=== PATIENT | male | born 1955 | race Caucasian/White ===

== ENCOUNTER 2017-01-16 23:19 | Inpatient (IN) | payer OTHER ==
[~2017-01-16] VITALS: Ht 170.2 cm; Wt 99.8 kg
[~2017-01-16 23:19] MED LIST: GLU500 PO; LEXAPRO10 MG PO; LOP600 PO; METFORMIN HCL500 MG PO; METOPROLOL TART25 M1 PO; MEV20 PO; MOTRIN800 MG PO; NIT0.4 SL; NITROSTAT0.4 MG SL; PRI20 PO; ZES10 PO; [UNRECOGNIZED DRUG - OTHER] PO
[2017-01-17 00:54] LABS: BASOPHIL % 0.4 % (0-2); PLATELET COUNT 284 x10^3mcL (130-400); RED CELL DISTRIBUTION WIDTH 13.2 % (11.5-14.5)
[2017-01-17 01:07] LABS: CARBON DIOXIDE 29.1 mmol/L (21-32); CHLORIDE SERUM 103 mmol/L (98-107); CREATININE SERUM 1.1 mg/dL (0.7-1.3); GFR1 > 60 mL/min; GLUCOSE SERUM 115 mg/dL (74-106); POTASSIUM SERUM 3.8 mmol/L (3.5-5.1); SODIUM SERUM 137 mmol/L (136-145)
[2017-01-17 01:12] LABS: ALBUMIN 3.9 g/dL (3.4-5.0); ALKALINE PHOSPHATASE 73 U/L (46-116); ALT/SGPT 42 U/L (16-63); AST/SGOT 27 U/L (15-37); BILIRUBIN TOTAL 0.4 mg/dL (0.20-1.00); TOTAL PROTEIN, SERUM 7.6 g/dL (6.4-8.2)
[2017-01-17 01:19] LABS: CK-MB 1.8 ng/mL (0-3.6)
[2017-01-17 03:59] LABS: FREE T4 0.95 ng/dL (0.76-1.46); FREE THYROXINE INDEX 2.2 ug/dL (1.4-4.5); T4(THYROXINE) 6.9 ug/dL (4.7-13.3)
[2017-01-17 04:00] LABS: CHOLESTEROL/HDL RATIO 3.4; MAGNESIUM 2.2 mg/dL (1.8-2.4); PHOSPHOROUS 3.3 mg/dL (2.5-4.9)
[2017-01-17 04:20] LABS: T3 TOTAL 1.08 ng/mL
[2017-01-17 10:35] VITALS: BP 132/76
[2017-01-17 12:24] VITALS: BP 134/71
[2017-01-17 15:38] LABS: microscopic required? YES; urine erythrocyte TRACE (NEGATIVE)
[2017-01-17 15:47] LABS: AMPHETAMINE QUAL UR NONE DETECTED (NEG <=1000)
[2017-01-17 18:20] VITALS: BP 126/51
[2017-01-17 22:04] VITALS: BP 123/2
[2017-01-18 06:20] VITALS: BP 101/55
[2017-01-18 09:30] VITALS: BP 110/59
[2017-01-18] MEDS ORDERED: THERA TABS1 TAB PO (13:20)
[2017-01-18] MEDS ORDERED: LIPITOR80 MG PO (13:21)
[2017-01-18] MEDS ORDERED: MOT800 PO (13:27)
[2017-01-18 13:56] VITALS: BP 110/59
== END 2017-01-18 14:50 | disposition home or self-care (01) | DRG 203 ==
LOC: ED 23:19 → MU 01-17 02:46 → DU 01-17 02:46 → MU 01-18 08:46
PROVIDERS: Emergency Medicine; ADMIT Family Medicine
DX: M94.0 Chondrocostal junction syndrome [Tietze] (principal); D68.69 Other thrombophilia; I42.9 Cardiomyopathy, unspecified; K21.9 Gastro-esophageal reflux disease without esophagitis; F32.9 Major depressive disorder, single episode, unspecified; E11.65 Type 2 diabetes mellitus with hyperglycemia; R20.0 Anesthesia of skin; I25.2 Old myocardial infarction; E78.1 Pure hyperglyceridemia; I25.10 Atherosclerotic heart disease of native coronary artery without angina pectoris; Z79.82 Long term (current) use of aspirin; Z87.891 Personal history of nicotine dependence
CPT/HCPCS: 82962; 83880; 84439; J1885; J2270; J7030; Q0092

== ENCOUNTER 2017-03-12 18:03 | Emergency (ER) | payer OTHER ==
[~2017-03-12] VITALS: Ht 170.2 cm; Wt 79.8 kg
[~2017-03-12 18:03] MED LIST changes: +LIPITOR80 MG PO; +MOT800 PO; +THERA TABS1 TAB PO
[2017-03-12 20:57] LABS: BASOPHIL % 0.3 % (0-2); PLATELET COUNT 281 x10^3mcL (130-400); RED CELL DISTRIBUTION WIDTH 13.3 % (11.5-14.5)
[2017-03-12 20:58] LABS: CALCIUM 8.8 mg/dL (8.5-10.1); CARBON DIOXIDE 29.1 mmol/L (21-32); CHLORIDE SERUM 103 mmol/L (98-107); CREATININE SERUM 1.2 mg/dL (0.7-1.3); GFR1 > 60 mL/min; GLUCOSE SERUM 98 mg/dL (74-106); POTASSIUM SERUM 4.4 mmol/L (3.5-5.1); SODIUM SERUM 141 mmol/L (136-145)
[2017-03-12 21:03] LABS: ALBUMIN 3.9 g/dL (3.4-5.0); ALKALINE PHOSPHATASE 62 U/L (46-116); ALT/SGPT 36 U/L (16-63); AST/SGOT 19 U/L (15-37); BILIRUBIN TOTAL 0.42 mg/dL (0.20-1.00); TOTAL PROTEIN, SERUM 7.3 g/dL (6.4-8.2)
[2017-03-12 22:41] VITALS: BP 126/78
== END 2017-03-12 22:41 | disposition home or self-care (01) ==
LOC: ED 18:03
PROVIDERS: Emergency Medicine
DX: R07.89 Other chest pain (principal); F32.1 Major depressive disorder, single episode, moderate; E78.00 Pure hypercholesterolemia, unspecified; Z88.0 Allergy status to penicillin; Z79.84 Long term (current) use of oral hypoglycemic drugs; Z79.899 Other long term (current) drug therapy
CPT/HCPCS: 36415; 83880; Q0092

== ENCOUNTER 2017-06-06 21:34 | Inpatient (IN) | payer OTHER ==
[~2017-06-06] VITALS: Ht 170.2 cm; Wt 101.6 kg
--- NOTE | 2017-06-06 21:41 | NUR ---
EKG COMPLETED AND REVIEWED BY
--- NOTE | 2017-06-06 21:41 | NUR ---
PT BACK TO ED LOBBY. WAITING ROOM AVAILIBILITY. PT INSTRUCTED TO RETURN TO TRIAGE FOR ANY CHANGE IN CONDITION.
--- NOTE | 2017-06-06 22:00 | NUR ---
PT TO ED VIA TRIAGE W/ C/O CP X 3 DAYS WORSENING TODAY PT HX OF TN X 3 YEARS AGO PT TO BEE ON MONITOR MD AWARE AWAIT ORDERS AND DISPO
--- NOTE | 2017-06-06 23:47 | NUR ---
PT MEDICATED PER MD ORDER CONT TO MONITOR
[2017-06-06 23:48] LABS: BASOPHIL % 0.6 % (0-2); PLATELET COUNT 261 x10^3mcL (130-400); RED CELL DISTRIBUTION WIDTH 13.1 % (11.5-14.5)
[2017-06-07] LABS: CALCIUM 8.4 mg/dL (8.5-10.1); CARBON DIOXIDE 29.6 mmol/L (21-32); CHLORIDE SERUM 107 mmol/L (98-107); CREATININE SERUM 1.2 mg/dL (0.7-1.3); GFR1 > 60 mL/min; GLUCOSE SERUM 104 mg/dL (74-106); POTASSIUM SERUM 4.1 mmol/L (3.5-5.1); SODIUM SERUM 141 mmol/L (136-145)
[2017-06-07 00:12] LABS: ALBUMIN 3.5 g/dL (3.4-5.0); ALKALINE PHOSPHATASE 66 U/L (46-116); ALT/SGPT 27 U/L (16-63); AST/SGOT 17 U/L (15-37); BILIRUBIN TOTAL 0.3 mg/dL (0.20-1.00); LIPASE 128 IU/L (73-393); TOTAL PROTEIN, SERUM 7.2 g/dL (6.4-8.2)
--- NOTE | 2017-06-07 00:27 | NUR ---
PT STATES NO PAIN NITRO AND ASA HAS RELIVED THE CHEST PAIN VSS MD AWARE
--- NOTE | 2017-06-07 00:29 | NUR ---
AGENCY DOCUMENTATION DONE BY Staff Name/Title - :DIPIKA ARITA [employer] User ID - : Agency Name - :[facility] Time Documented - From - : To - :
[2017-06-07 01:50] LABS: MAGNESIUM 2.2 mg/dL (1.8-2.4); T3 TOTAL 1.35 ng/mL
[2017-06-07 01:55] LABS: FREE T4 0.88 ng/dL (0.76-1.46); FREE THYROXINE INDEX 2.4 ug/dL (1.4-4.5); T4(THYROXINE) 7.4 ug/dL (4.7-13.3)
--- NOTE | 2017-06-07 02:10 | NUR ---
REPORT GIVEN TO FLOOR HAO ORNELAS ALL QUESTIONS ASKED AMD ANSWERED PT TRANSFERED VIA GURNEY IN STABLE CONDITION W/ ALL PERSONAL BELONGINGS
[2017-06-07 02:26] VITALS: BP 140/70
[2017-06-07 02:31] LABS: CHOLESTEROL/HDL RATIO 2.8
--- NOTE | 2017-06-07 02:41 | NUR ---
ADMITTED A 62 YEARS OLD MALE AWAKE, ALERT AND ORIENTED CAME IN VIA GURNEY ACCOMPANIED BY ER STAFF WITH C/O CHESTPAIN AND SOB ON EXERTION WITH OCASSIONAL COUGH X 3 DAYS TIG WELDER. MEDICATED IN ER FOR CHESTPAIN DENIES PAIN THIS TIME. KEPT IN COMFORT AND ORIENTED TO ROOM AND DEVICES. TELE# 6 SB ON MONITOR. IV TO LH INTACT AND PATENT, WILL CONTINUE TO MONITOR. CALL LIGHT WITHIN REACH.
--- NOTE | 2017-06-07 03:01 | NUR ---
WITH ADMISSION ORDERS AND CARRIED OUT. STARTED WITH NS INFUSING WELL. WILL CONTINUE TO MONITOR. DENIES CHESTPAIN AT THIS TIME.
--- NOTE | 2017-06-07 05:24 | NUR ---
CHECKED AT INTERVALS FOR NEEDS AND COMFORT. DENIES CHEST DISCOMFORT THE ENTIRE SHIFT.
[2017-06-07 05:29] VITALS: BP 111/58
--- NOTE | 2017-06-07 07:25 | NUR ---
RECEIVED PT. IN BED A/A/O X4. NO SOB, NO N/V NOTED. DENIES ANY PAIN AT THIS TIME. NS RUNNING AT 100 CC/HR. VIA IV H/L AT L HAND. SCD TO BLE MAINTAINED. BED IN LOW POS., CALL LIGHT WITHIN REACH. SIDE RAILS UP X3.
--- NOTE | 2017-06-07 08:45 | NUR ---
DR. THAO, THE RESIDENTS, CHARGE NURSE, AND ATTENDING NURSE AT BEDSIDE. CAREPLAN DISCUSSED WITH PT. ALL QUESTIONS ANSWERED.
[2017-06-07 09:45] VITALS: BP 130/71
[2017-06-07 13:25] VITALS: BP 117/55
[2017-06-07] MEDS ORDERED: METOPROLOL TART25 M1 PO (14:37)
[2017-06-07] MEDS ORDERED: CYMBALTA60 M1 PO (14:38)
[2017-06-07] MEDS ORDERED: ACCU-CHEK1 EACH MC (16:58)
[2017-06-07] MEDS ORDERED: ACCU-CHEK COMB1 EACH MC (16:58)
[2017-06-07] MEDS ORDERED: GLU500 PO (16:58)
[2017-06-07] MEDS ORDERED: TEST STRIPS1 EACH MC (16:58)
--- NOTE | 2017-06-07 17:10 | NUR ---
D/C HOME INSTRUCTIONS GIVEN TO PT. WITH VERBALIZATION OF UNDERSTANDING. IV H/L TO L HAND REMOVED. TELE. MONITOR #6 REMOVED AND RETURNED TO TELE. MONITOR STATION.
--- NOTE | 2017-06-07 18:00 | NUR ---
PT. IS BEING DISCHARGED IN STABLE CONDITION (DECLINED TO BE WHEELED OUT IN A WHEELCHAIR). ALL BELONGINGS SENT HOME WITH PT. UPON DISCHARGE.
== END 2017-06-07 18:00 | disposition home or self-care (01) | DRG 756 ==
LOC: ED 21:34 → DU 06-07 01:00
PROVIDERS: Emergency Medicine; ADMIT Family Medicine
DX: F41.9 Anxiety disorder, unspecified (principal); D68.69 Other thrombophilia; K21.9 Gastro-esophageal reflux disease without esophagitis; E11.65 Type 2 diabetes mellitus with hyperglycemia; D64.9 Anemia, unspecified; E78.5 Hyperlipidemia, unspecified; I25.2 Old myocardial infarction; E78.1 Pure hyperglyceridemia; I34.0 Nonrheumatic mitral (valve) insufficiency; E66.3 Overweight; Z53.29 Procedure and treatment not carried out because of patient's decision for other reasons; F32.9 Major depressive disorder, single episode, unspecified; E78.00 Pure hypercholesterolemia, unspecified; I25.10 Atherosclerotic heart disease of native coronary artery without angina pectoris; Z68.35 Body mass index [BMI] 35.0-35.9, adult; Z79.1 Long term (current) use of non-steroidal anti-inflammatories (NSAID); Z88.0 Allergy status to penicillin; Z79.84 Long term (current) use of oral hypoglycemic drugs; Z79.899 Other long term (current) drug therapy; Z90.49 Acquired absence of other specified parts of digestive tract; Z83.3 Family history of diabetes mellitus; Z82.49 Family history of ischemic heart disease and other diseases of the circulatory system; Z98.49 Cataract extraction status, unspecified eye
CPT/HCPCS: 82962; 84439; J7030; Q0092

== ENCOUNTER 2017-09-19 11:33 | Inpatient (IN) | payer OTHER ==
[~2017-09-19] VITALS: Ht 170.2 cm; Wt 95.7 kg
[~2017-09-19 11:33] MED LIST changes: +ACCU-CHEK COMB1 EACH MC; +ACCU-CHEK1 EACH MC; +CYMBALTA60 M1 PO; +TEST STRIPS1 EACH MC
[2017-09-19 11:35] VITALS: Ht 170.2 cm; Wt 95.7 kg
[2017-09-19 13:08] LABS: BASOPHIL % 1.5 % (0-2); PLATELET COUNT 267 x10^3mcL (130-400); RED CELL DISTRIBUTION WIDTH 13.3 % (11.5-14.5)
[2017-09-19 13:12] LABS: CALCIUM 8.7 mg/dL (8.5-10.1); CARBON DIOXIDE 27.4 mmol/L (21-32); CHLORIDE SERUM 105 mmol/L (98-107); CREATININE SERUM 1.2 mg/dL (0.7-1.3); GFR1 > 60 mL/min; GLUCOSE SERUM 124 mg/dL (74-106); POTASSIUM SERUM 3.9 mmol/L (3.5-5.1); SODIUM SERUM 141 mmol/L (136-145)
[2017-09-19 13:16] LABS: ALBUMIN 3.6 g/dL (3.4-5.0); ALKALINE PHOSPHATASE 59 U/L (46-116); ALT/SGPT 25 U/L (16-63); AST/SGOT 19 U/L (15-37); BILIRUBIN TOTAL 0.71 mg/dL (0.20-1.00)
[2017-09-19 14:53] VITALS: BP 128/61
[2017-09-19 15:34] LABS: MAGNESIUM 2.1 mg/dL (1.8-2.4); PHOSPHOROUS 3.1 mg/dL (2.5-4.9); T3 TOTAL 0.92 ng/mL
[2017-09-19 15:36] LABS: CHOLESTEROL/HDL RATIO 2.6
[2017-09-19 15:44] LABS: FREE T4 0.91 ng/dL (0.76-1.46); FREE THYROXINE INDEX 2.3 ug/dL (1.4-4.5); T4(THYROXINE) 6.3 ug/dL (4.7-13.3)
[2017-09-19 20:14] VITALS: BP 115/63
[2017-09-19 22:20] VITALS: BP 108/63
[2017-09-20 05:09] LABS: microscopic required? YES; urine erythrocyte 1+ (NEGATIVE)
[2017-09-20 05:39] LABS: AMPHETAMINE QUAL UR NONE DETECTED (NEG <=1000)
[2017-09-20 06:10] LABS: BASOPHIL % 0.3 % (0-2); PLATELET COUNT 240 x10^3mcL (130-400); RED CELL DISTRIBUTION WIDTH 13.3 % (11.5-14.5)
[2017-09-20 06:33] VITALS: BP 109/61
[2017-09-20 06:40] LABS: CALCIUM 8.1 mg/dL (8.5-10.1); CARBON DIOXIDE 23.7 mmol/L (21-32); CHLORIDE SERUM 105 mmol/L (98-107); GFR1 > 60 mL/min; GLUCOSE SERUM 87 mg/dL (74-106); POTASSIUM SERUM 4.4 mmol/L (3.5-5.1); SODIUM SERUM 139 mmol/L (136-145)
[2017-09-20 10:14] VITALS: BP 109/61
[2017-09-20 10:49] VITALS: BP 111/57
[2017-09-20 17:50] VITALS: BP 105/55
[2017-09-20 19:50] VITALS: BP 102/56
[2017-09-21 05:42] VITALS: BP 105/63
[2017-09-21 08:17] LABS: BASOPHIL % 0.2 % (0-2); PLATELET COUNT 247 x10^3mcL (130-400); RED CELL DISTRIBUTION WIDTH 13.4 % (11.5-14.5)
[2017-09-21 10:02] VITALS: BP 116/61
[2017-09-21 11:10] LABS: CALCIUM 8.6 mg/dL (8.5-10.1); CHLORIDE SERUM 107 mmol/L (98-107); CREATININE SERUM 1.1 mg/dL (0.7-1.3); GFR1 > 60 mL/min; GLUCOSE SERUM 98 mg/dL (74-106); SODIUM SERUM 142 mmol/L (136-145)
[2017-09-21 13:58] VITALS: BP 115/69
[2017-09-21 15:51] VITALS: BP 115/69
== END 2017-09-21 17:10 | disposition home or self-care (01) | DRG 243 ==
LOC: ED 11:33 → DU 14:13
PROVIDERS: Emergency Medicine Emergency Medical Services; Family Medicine
DX: K21.9 Gastro-esophageal reflux disease without esophagitis (principal); I42.2 Other hypertrophic cardiomyopathy; I10 Essential (primary) hypertension; F41.1 Generalized anxiety disorder; E11.9 Type 2 diabetes mellitus without complications; I25.2 Old myocardial infarction; F32.9 Major depressive disorder, single episode, unspecified; E78.5 Hyperlipidemia, unspecified; Z90.49 Acquired absence of other specified parts of digestive tract; Z98.49 Cataract extraction status, unspecified eye; Z88.0 Allergy status to penicillin; Z83.3 Family history of diabetes mellitus; Z82.49 Family history of ischemic heart disease and other diseases of the circulatory system; M94.0 Chondrocostal junction syndrome [Tietze]; E83.51 Hypocalcemia
CPT/HCPCS: 83880; 84439; A9500; J2785; J7030; Q0092

== ENCOUNTER 2017-11-20 01:47 | Inpatient (IN) | payer OTHER ==
[~2017-11-20] VITALS: Ht 170.2 cm; Wt 95.2 kg
[2017-11-20 02:54] LABS: CALCIUM 8.5 mg/dL (8.5-10.1); CARBON DIOXIDE 29.6 mmol/L (21-32); CHLORIDE SERUM 104 mmol/L (98-107); CREATININE SERUM 1.2 mg/dL (0.7-1.3); GFR1 > 60 mL/min; GLUCOSE SERUM 121 mg/dL (74-106); POTASSIUM SERUM 4.4 mmol/L (3.5-5.1); SODIUM SERUM 139 mmol/L (136-145)
[2017-11-20 02:58] LABS: ALKALINE PHOSPHATASE 55 U/L (46-116); ALT/SGPT 25 U/L (16-63); AST/SGOT 24 U/L (15-37); BILIRUBIN TOTAL 0.26 mg/dL (0.20-1.00); TOTAL PROTEIN, SERUM 6.4 g/dL (6.4-8.2)
[2017-11-20 03:01] LABS: ALBUMIN 3.2 g/dL (3.4-5.0)
[2017-11-20 03:46] LABS: BASOPHIL % 0.4 % (0-2); PLATELET COUNT 265 x10^3mcL (130-400); RED CELL DISTRIBUTION WIDTH 13.6 % (11.5-14.5)
[2017-11-20 04:16] LABS: T3 TOTAL 0.99 ng/mL
[2017-11-20] MEDS ORDERED: NOR5 PO (04:22)
[2017-11-20 04:50] LABS: UA SPECIFIC GRAVITY 1.015 (1.005-1.035); microscopic required? YES; urine erythrocyte 1+ (NEGATIVE)
[2017-11-20 05:10] LABS: AMPHETAMINE QUAL UR NONE DETECTED (NEG <=1000)
[2017-11-20 05:14] VITALS: BP 127/73
[2017-11-20 05:15] LABS: CHOLESTEROL/HDL RATIO 2.4; MAGNESIUM 2.3 mg/dL (1.8-2.4); PHOSPHOROUS 3.1 mg/dL (2.5-4.9)
[2017-11-20 05:27] LABS: FREE T4 0.89 ng/dL (0.76-1.46); FREE THYROXINE INDEX 2.3 ug/dL (1.4-4.5); T4(THYROXINE) 6.5 ug/dL (4.7-13.3)
[2017-11-20 05:53] VITALS: BP 108/63
[2017-11-20 09:53] VITALS: BP 101/56
[2017-11-20 13:50] VITALS: BP 131/75
[2017-11-20 17:23] VITALS: BP 147/54
[2017-11-20 22:19] VITALS: BP 131/61
[2017-11-21 05:08] VITALS: BP 118/66
[2017-11-21 06:53] LABS: CALCIUM 8.4 mg/dL (8.5-10.1); CARBON DIOXIDE 29.7 mmol/L (21-32); CHLORIDE SERUM 106 mmol/L (98-107); CREATININE SERUM 1.1 mg/dL (0.7-1.3); GFR1 > 60 mL/min; GLUCOSE SERUM 92 mg/dL (74-106); MAGNESIUM 2.1 mg/dL (1.8-2.4); PHOSPHOROUS 3.5 mg/dL (2.5-4.9); POTASSIUM SERUM 4.3 mmol/L (3.5-5.1); SODIUM SERUM 137 mmol/L (136-145)
[2017-11-21 06:58] LABS: BASOPHIL % 0.4 % (0-2); PLATELET COUNT 268 x10^3mcL (130-400); RED CELL DISTRIBUTION WIDTH 12.9 % (11.5-14.5)
[2017-11-21 08:14] VITALS: BP 108/67
[2017-11-21 08:34] VITALS: BP 115/60
[2017-11-21] MEDS ORDERED: PEPCID20 MG PO (11:19)
[2017-11-21 12:26] VITALS: BP 115/60
[2017-11-21 13:09] VITALS: BP 118/65
== END 2017-11-21 13:25 | disposition home or self-care (01) | DRG 198 ==
LOC: ED 01:47 → DU 03:19
PROVIDERS: Emergency Medicine; Student in an Organized Health Care Education/Training Program
DX: R07.89 Other chest pain (principal); I25.2 Old myocardial infarction; E11.65 Type 2 diabetes mellitus with hyperglycemia; E44.1 Mild protein-calorie malnutrition; F32.9 Major depressive disorder, single episode, unspecified; K21.9 Gastro-esophageal reflux disease without esophagitis; E78.5 Hyperlipidemia, unspecified; F41.1 Generalized anxiety disorder; R31.9 Hematuria, unspecified; D64.9 Anemia, unspecified; N20.0 Calculus of kidney; F14.90 Cocaine use, unspecified, uncomplicated; E02 Subclinical iodine-deficiency hypothyroidism; N52.9 Male erectile dysfunction, unspecified; Z90.49 Acquired absence of other specified parts of digestive tract; Z98.49 Cataract extraction status, unspecified eye; Z88.0 Allergy status to penicillin; Z79.4 Long term (current) use of insulin; Z83.3 Family history of diabetes mellitus; Z82.49 Family history of ischemic heart disease and other diseases of the circulatory system; Z68.32 Body mass index [BMI] 32.0-32.9, adult
CPT/HCPCS: 82962; 83880; 84439; 85378; J7030; Q0092

== ENCOUNTER 2019-02-23 13:42 | Inpatient (IN) | payer OTHER ==
[~2019-02-23] VITALS: Ht 175.3 cm; Wt 84.4 kg
[~2019-02-23 13:42] MED LIST changes: +NOR5 PO; +PEPCID20 MG PO
[2019-02-23 14:04] VITALS: Ht 175.3 cm; Wt 84.4 kg
--- NOTE | 2019-02-23 14:10 | NUR ---
HAND-OFF REPORT TO HAO LIMA
--- NOTE | 2019-02-23 14:20 | NUR ---
PT WAS BIBA TO ED FOR EVAL OF CHEST PAIN. PT STS "I WAS AT [facility]RGENT [facility]ARE AND THEY SAID THE HEART TEST WAS NOT NORMAL." PT HANDED ME A PREVIOUS DC PAPERWORK FROM [facility] WITH THE WORD 'ISCHEMIA' WRITTEN ON IT AND STATED "THAT'S WHAT THE DOCTOR TOLD ME I HAD." PT REPORTS 6/10 PAIN AT THIS TIME. IN R SIDE LYING POS. DOES NOT APPEAR TO BE IN DISCOMFORT. USING CELLPHONE AT THIS TIME TO CALL DAUGHTER
[2019-02-23 14:27] LABS: BASOPHIL % 0.6 % (0-2); PLATELET COUNT 357 x10^3mcL (130-400); RED CELL DISTRIBUTION WIDTH 13.4 % (11.5-14.5)
[2019-02-23 14:44] LABS: CALCIUM 9.3 mg/dL (8.5-10.1); CARBON DIOXIDE 28.8 mmol/L (21-32); CREATININE SERUM 1.3 mg/dL (0.7-1.3); POTASSIUM SERUM 4.1 mmol/L (3.5-5.1)
[2019-02-23 14:48] LABS: ALBUMIN 3.9 g/dL (3.4-5.0); BILIRUBIN TOTAL 0.4 mg/dL (0.20-1.00); TOTAL PROTEIN, SERUM 7.8 g/dL (6.4-8.2)
--- NOTE | 2019-02-23 14:55 | NUR ---
PT STS "THEY HAVE A HARD TIME FINDING MY VEIN." TWO ATTEMPTS UNSUCCESFFUL
--- NOTE | 2019-02-23 16:12 | NUR ---
PT REQUESTED PAIN MED FOR CHEST PAIN AND MEDICATED PER DR FISHMAN ORDER. WILL CONT TO MONITOR
--- NOTE | 2019-02-23 16:59 | NUR ---
REPORT GIVEN TO COTY BUI
[2019-02-23] MEDS ORDERED: NAPROSYN500 MG PO (17:02)
[2019-02-23] MEDS ORDERED: ALTOPREV40 M2 PO (17:03)
[2019-02-23] MEDS ORDERED: PEPCID20 MG PO (17:03)
[2019-02-23] MEDS ORDERED: CIPROFLOXACIN500 MG PO (17:03)
[2019-02-23] MEDS ORDERED: NITROSTAT0.4 MG SL (17:04)
[2019-02-23] MEDS ORDERED: FLAGYL500 MG PO (17:04)
[2019-02-23 17:23] LABS: T3 TOTAL 1.07 ng/mL
[2019-02-23 17:24] VITALS: BP 148/87
--- NOTE | 2019-02-23 17:26 | NUR ---
RECEIVED PT FROM ED VIA ANA CRISTINA. ORIENTED PT TO ROOM AND SURROUNDINGS. IV NOTED TO RFA PATENT AND INTACT. TELE 7 PLACED ON PT READING NSR. INSTRUCTED PT ON THE USE OF CALL LIGHT FOR ASSISTANCE. ENDORSED PT TO PRIMARY NURSE BRYN
[2019-02-23 17:27] LABS: FREE T4 0.97 ng/dL (0.76-1.46); FREE THYROXINE INDEX 2.2 ug/dL (1.4-4.5); T4(THYROXINE) 6.9 ug/dL (4.7-13.3)
[2019-02-23] MEDS ORDERED: GOOD SENSE OMEP20 MG PO (17:30)
[2019-02-23] MEDS ORDERED: CARVEDILOL3.125 M1 PO (17:31)
[2019-02-23 17:32] LABS: CHOLESTEROL/HDL RATIO 3.3
[2019-02-23] MEDS ORDERED: VITAMIN B121000 MCG PO (17:32)
--- NOTE | 2019-02-23 17:46 | NUR ---
I AM FEELING BETTER... CHEST PAIN IS ABOUT 5-6 NOW. INSTRUCTED TO CALL RN FOR ANY NEED.
--- NOTE | 2019-02-23 17:59 | NUR ---
MD ANGELA MADE AWARE OF 6/10 CHEST DISCOMFORT.
--- NOTE | 2019-02-23 19:27 | NUR ---
HANDOFF REPORT GIVEN TO HAO GREGORY.
[2019-02-23 19:42] LABS: UA SPECIFIC GRAVITY 1.025 (1.005-1.035); microscopic required? YES; urine erythrocyte 2+ (NEGATIVE)
[2019-02-23 19:50] LABS: AMPHETAMINE QUAL UR NONE DETECTED (See below)
--- NOTE | 2019-02-23 20:26 | NUR ---
CJ COMPLAINED OF RIGHT SIDED STEADY CHEST PAIN, 01/22. NORCO 7.5/325 MG PO GIVEN ORDERED. WILL CONTINUE TO MONITOR.
[2019-02-23 20:30] VITALS: BP 136/76
[2019-02-23 20:37] VITALS: BP 136/76
--- NOTE | 2019-02-23 22:05 | NUR ---
PATIENT RECEIVED AWAKE, ALERT, ORIENTED X4 SITTING ON THE SIDE OF THE BED. RESPIRATION EVEN AND UNLABORED, ON ROOM AIR. SALINE LOCK TO RIGHT FOREARM PATENT AND INTACT. COMPLAINED OF STEADY CHEST PAIN, 6/10 SHARP IN NATURE. NO GI COMPLAINTS NOTED. VOIDING FREELY WITHOUT DIFFICULTY. GENERALIZED WEAKNESS NOTED. SKIN DRY AND INTACT. ON TELE #7. WILL CONTINUE TO MONITOR.
--- NOTE | 2019-02-24 00:50 | NUR ---
PATIENT COMPLAINED OF DIFFICULTY BREATHING, LATEST VITAL SIGNS FOLLOWS BP 13/75, HR 64, RR 20, O2 SAT 99% PROVIDED NASAL CANNULA. HE ALSO COMPLAINED OF NAUSEA ZOFRAN 4 MG IVP GIVEN ORDERED. WILL CONTINUE TO MONITOR.
[2019-02-24 05:39] VITALS: BP 108/50
[2019-02-24 06:38] LABS: CALCIUM 9.2 mg/dL (8.5-10.1); CARBON DIOXIDE 29.8 mmol/L (21-32); CREATININE SERUM 1.3 mg/dL (0.7-1.3); POTASSIUM SERUM 4.5 mmol/L (3.5-5.1)
--- NOTE | 2019-02-24 06:40 | NUR ---
PATIENT AWAKE, SITTING ON THE SIDE OF THE BED. RESPIRATION EVEN AND UNLABORED, ON ROOM AIR. SALINE LOCK TO RIGHT FOREARM PATENT AND INTACT. DENIES PAIN AT THIS TIME. SAFETY OBSERVED. PLACED BED IN THE LOWEST POSITION. PLACED CALL LIGHT WITHIN REACH AT ALL TIMES.
[2019-02-24 06:44] LABS: BASOPHIL % 0.7 % (0-2); PLATELET COUNT 320 x10^3mcL (130-400); RED CELL DISTRIBUTION WIDTH 13.4 % (11.5-14.5)
[2019-02-24 07:35] VITALS: BP 123/67
--- NOTE | 2019-02-24 07:50 | NUR ---
AWAKE,ALERT AND ORIENTED ,DENIES CHEST PAIN.AMBULATORY ARROUND IN [address] WAY.NO ACUTE DISTRESS NOTED. ATE BREAKFAST WELL. VOIDING.CALL LIGHT W/ IN REACH, WILL CONT. PLAN OF CARE.
[2019-02-24 11:55] VITALS: BP 129/76
--- NOTE | 2019-02-24 13:00 | NUR ---
PT. UP AND ABOUT AMBULATED IN THE MCNULT[address] WAY,[place]. WELL DENIES ANY PAIN .
[2019-02-24 16:14] VITALS: BP 115/68
[2019-02-24 16:15] VITALS: BP 115/68
--- NOTE | 2019-02-24 16:24 | NUR ---
PT. C/O PAIN IN RT RIB CAGE ,TYLENOL GIVEN ORDERED.MADE PT. COMFORTABLE IN BED. CALL LIGHT W/ IN REACH.WILL CONT. TO MONITOR PT.
--- NOTE | 2019-02-24 18:00 | NUR ---
PT. RESTING COMFORTABLY IN BED. DENIES ANY PAIN AT THIS TIME PT. D/C HOME TODAY AWAITING FOR RIDE.
--- NOTE | 2019-02-24 19:10 | NUR ---
PT. WENT HOME W/ STABLE CONDITION PER W/C ACC. W/ HIS FAMILY ,DISCHARGED INSTRUCTIONS GIVEN AND DISCUSED TO PT.AND VERBALIZED UNDERSTANDING OF INSTRUCTIONS GIVEN NO ACUTE DISTRESS NOTED. ESCORTED BY JASMIN IN THE LOBBY.
== END 2019-02-24 18:55 | disposition home or self-care (01) | DRG 203 ==
LOC: ED 13:42 → DU 16:15
PROVIDERS: ADMIT Internal Medicine
DX: M94.0 Chondrocostal junction syndrome [Tietze] (principal); E11.9 Type 2 diabetes mellitus without complications; E78.5 Hyperlipidemia, unspecified; F32.9 Major depressive disorder, single episode, unspecified; K21.9 Gastro-esophageal reflux disease without esophagitis; I10 Essential (primary) hypertension; F12.90 Cannabis use, unspecified, uncomplicated; F14.90 Cocaine use, unspecified, uncomplicated; I25.2 Old myocardial infarction; Z88.0 Allergy status to penicillin; Z79.4 Long term (current) use of insulin; Z83.3 Family history of diabetes mellitus; Z82.49 Family history of ischemic heart disease and other diseases of the circulatory system; Z87.891 Personal history of nicotine dependence; Z79.899 Other long term (current) drug therapy
CPT/HCPCS: 82962; 83880; 84439; 94150; G0378; J2405; J7030; Q0092